=== PATIENT | male | born 1990 | race Hispanic/Latino ===

== ENCOUNTER 2019-07-31 19:13 | Emergency (ER) | payer SELFPAY ==
[2019-07-31] MEDS ORDERED: IBUPROFEN 800 MG TAB ONE (19:51)
== END 2019-07-31 19:59 | disposition home or self-care (01) ==
LOC: EDH 19:13
DX: J11.1 Influenza due to unidentified influenza virus with other respiratory manifestations (principal); F41.9 Anxiety disorder, unspecified; Z72.0 Tobacco use